=== PATIENT | female | born 1975 | race Hispanic/Latino ===

== ENCOUNTER 2017-12-08 01:09 | Emergency (ER) | payer OTHER ==
[2017-12-08] MEDS ORDERED: Fentanyl 100 MCG/2 ML VIAL ONE (01:31)
[2017-12-08 02:15] LABS: #Eosinphils 0.1 thou/uL (0.0-0.7); #Lymphocytes 2.2 thou/uL (1.20-3.40); #Monocytes 0.5 thou/uL (0.11-0.59); #Neutrophils 6.9 thou/uL (1.40-6.50); %Basophils 0.2 % (0.0-1.0); %Eosinophils 0.7 % (0.0-10.0); %Monocytes 5.3 % (0.0-10.0); %Neutrophils 70.9 % (42.0-75.0); Hemoglobin 15.4 g/dL (12.0-16.0); Mean Corpuscular HGB CONC 35.3 g/dL (32.0-36.0); Mean Corpuscular Hemoglobin 32.9 pg (27.0-31.0); Mean Corpuscular Volume 93.2 fl (81.0-99.0); Mean Platelet Volume 6.7 fL (7.4-10.4); Platelet Count 182 thou/uL (130-400); RBC Distribution Width 12.1 % (11.5-14.5); Red Blood Cell (RBC) Count 4.69 mill/uL (4.20-5.40); White Blood Cell (WBC) Count 9.7 thou/uL (4.8-10.8)
[2017-12-08 02:16] LABS: Bilirubin Negative (Negative); Blood, Urine Large (Negative); Clarity CLEAR (Clear); Glucose, Urine (Dipstick) Negative (Negative); Leukocyte Small (Negative); Nitrite Negative (Negative); Pregnancy Test - Urine (BHCG) Negative (Negative); Pregu Control Background? CLEAR/WHITE (CLR/WHITE); Pregu Control Bar Appear? YES (CONTROL BAR); Protein, Urine (Dipstick) Negative (Neg-Trace); Urobilinogen 0.2 mg/dL (0.2-1.0); pH, Urine 5.5 (5.0-9.0)
[2017-12-08 02:18] LABS: Bacteria/HPF None Seen HPF (None Seen); Hyaline Casts/LPF 0-3 HYALINE CAST LPF (0-3 Hyaline); Pathc Cast-AUWi Flag 0.58 (0-2.49); RBC/HPF GREATER THAN 50-TNTC HPF (0-3); Squamous Epithelial 0-3 HPF (0-3)
[2017-12-08 02:37] LABS: ALT (SGPT) 14 U/L (8-55); AST (SGOT) 14 U/L (5-34); Albumin 4.5 g/dL (3.5-5.0); Alkaline Phosphatase 46 U/L (40-150); Anion Gap 14 mmol/L (10-20); BUN (Urea Nitrogen) 18 mg/dL (7.0-18.7); Bilirubin, Total 0.7 mg/dL (0.2-1.2); Calc. Creatinine Clearance 0 mL/min (70-130); Calcium 9.3 mg/dL (7.8-10.44); Carbon Dioxide 23 mmol/L (22-29); Chloride 105 mmol/L (98-107); Estimated GFR-MDRD 83; Globulin 3.3 g/dL (2.4-3.5); Glucose 104 mg/dL (70-105); Lipase 29 U/L (8-78); Potassium 3.8 mmol/L (3.5-5.1); Protein, Total 7.8 g/dL (6.0-8.3); Sodium 138 mmol/L (136-145)
[2017-12-08] MEDS ORDERED: Lidocaine Viscous Sol 2% 15 ml UD Cup ONE (04:48)
[2017-12-08] MEDS ORDERED: Mag-Al 1200 mg/1200 mg/30 ML UDCUP ONE (04:48)
--- NOTE | 2017-12-08 08:48 | ULT ---
PRELIMINARY REPORT/[facility]/EMERGENTY AFTER-HOURS PROCEDURE US Abdomen Limited, Right Upper Quadrant CLINICAL HISTORY: 42 years old, female; Pain and signs and symptoms; Constipation; Abdominal pain; Localized; Other: Ep igastric to ruq TECHNIQUE: Real-time ultrasound of the right upper quadrant with image documentation. COMPARISON: No relevant prior studies available. FINDINGS: Normal gallbladder. No cholelithiasis. No gallbladder wall thickening or pericholecystic fluid. No biliary dilation, common duct measures 1.8 mm. Unremarkable liver, no focal abnormality. Visible pancreas unremarkable. Images of the right kidney show no hydronephrosis. IMPRESSION: Essentially unremarkable right upper quadrant abdominal ultrasound. No cholelithiasis or biliary tree dilation. Thank you for allowing us to participate in the care of your patient. Dictated and Authenticated by: Dony Padilla MD 12/08/2017 4:26 AM Central Time ([place] & [place]) FINAL REPORT SONOGRAM RIGHT UPPER QUADRANT: DATE: 12/08/17. TIME: Performed on an emergency basis at 0249 hours. HISTORY: Right upper quadrant pain. FINDINGS: Agree with the preliminary report by Dr. Padilla from [facility]. No evidence of gallstones or acute biliary obstruction. POS: [facility]
--- NOTE | 2017-12-08 08:54 | CT ---
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 Pain is localized to the substernal region, no radiat ion. Pt denies n/v, abdominal SX. Lmp onset this morning. Pt reports she has had pain similar to this in the past but it usually is relieved quickly. HX thyroid problems but not medicated. Nkma. Den ies smoking, alcohol use. TECHNIQUE: Axial computed tomography images of the abdomen and pelvis with intravenous contrast. Coronal reforma tted images were created and reviewed. COMPARISON: US Gallbladder RUQ 2017-12-08 02:48 FINDINGS: The lung bases are clear. Small hiatal hernia, about 3 cm in diameter. There may be some mucosal/wall thickening involving the lower esophagus. This is nonspecific, but cou ld represent evidence for esophagitis. Please correlate clinically. No definite gallbladder abnormality by CT. No biliary tree dilation. There is fatty infiltration of the liver. The liver appears mildly enlarged, with right lobe length of about 20 cm. No definite/significant focal hepatic abnormality. Unremarkable appearance of the spleen, kidneys, adrenal glands, and pancreas. Possibility of slightly thickened mucosa/wall in the distal antrum of the stomach. This is a nonspeci fic appearance, and could well be transient on CT, but could also represent evidence for gastritis or peptic ulcer disease. Please correlate clinically. No free air, ascites, or bowel distention. No evidence for abdominal aortic aneurysm. No retroperitoneal adenopathy. CT pelvis: The appendix is visualized and appears normal. There are no CT findings to strongly suggest diverticulitis. Suspect a 15 mm subserosal fibroid in the fundus of the uterus. No other definite abnormal mass or fluid collection in the pelvis. IMPRESSION: No free air or bowel distention. Possible thickened mucosa/wall in the distal stomach, see above discussion. Unremarkable gallbladder by CT. Normal appendix. Small hiatal hernia. Possibly some thickening of the lower esophagus, see above discussion. Other findings discussed above. Thank you for allowing us to participate in the care of your patient. Dictated and Authenticated by: Dony Padilla MD 12/08/2017 4:37 AM Central Time ([place] & [place]) FINAL REPORT CT ABDOMEN AND PELVIS WITH IV COTNRAST: DATE: 12/08/17. TIME: Performed on an emergency basis at 0346 hours. HISTORY: Abdomen pain. FINDINGS: Findings agree with the preliminary report by Dr. Padilla from [facility]. No active inflammati on is apparent. Small hiatal hernia. Gastric wall thickening is nonspecific. No evidence of bowel obstruction. POS: [facility]
== END 2017-12-08 05:11 | disposition home or self-care (01) ==
LOC: ERS 01:09
DX: R10.13 Epigastric pain (principal); R10.11 Right upper quadrant pain
CPT/HCPCS: 74177; 76705; 80053; 81003; 81015; 81025; 83690; 85025; 96361; 96374; J3010